=== PATIENT | male | born 1975 | race Two or more races ===

== ENCOUNTER 2024-09-22 17:33 | Inpatient (IN) | payer MEDICAID, OTHER ==
[~2024-09-22] VITALS: Ht 185.4 cm; Wt 79.4 kg
[2024-09-22 17:45] VITALS: PULSE 57; RESP 20; O2SAT 99
[2024-09-22] MEDS: HYDROmorphone HCL 2 MG/ML VL/or syr IV ONE ×2 (17:45→19:30)
[2024-09-22] MEDS: ONDANSETRON HCL 4 MG/2 ML VIAL IV ONE (17:45)
--- NOTE | 2024-09-22 17:47 | ED.PDOC ---
GI ASSESSMENT HPI Comments This is a 49 year-old male, who presents to the ED via EMS with a chief complaint of epigastric abdominal pain as of X1 month ago, but became extreme in the past 2 hours. Patient reports epigastric abdominal pain as "stabbing", non- radiating, with no associated relieving factors. Patient has no further complaints at this time. Patient denies trauma to the abdomen, as well as, further associated symptoms of N/V/D, fever, chills, migraine, dizziness, back pain, or dysuria. Chief Complaint: Abdominal Pain Time Seen by MD: 17:35 Reviewed Notes: Nurses Notes, Injection Molding Technician Notes, Medications, Allergies Allergies: Coded Allergies: NO KNOWN ALLERGIES (Unverified , 09/22/24) Information Source: Patient, Emergency Med Personnel Mode of Arrival: EMS Timing: Hours, Months Duration: Since onset Prehospital treatment: None Quality: Aching, Cramping, Sharp Vomitus: None Severity: Moderate Pain Location: Epigastric (abdominal pain ) Associated sign and symptoms: Abdominal Pain Past Medical History PAST MEDICAL HISTORY: Denies Surgical History: Denies all surgeries Family History Family History: Reviewed,noncontributory to illness, No family hx of Cancer, No family hx of DM, No family hx of Heart sivlerio, No family hx of HTN, No family hx ofKidney silverio, No family hx of Liver silverio, No family hx of Lung silverio, No family hx of Stroke Social History Smoker: Non-Smoker Alcohol: Denies ETOH Use Drugs: Denies Drug Use Lives In: Home Constitutional: denies: chills, diaphoresis, fatigue, fever, malaise, sweats, weakness, others EENTM: denies: blurred vision, double vision, ear bleeding, ear discharge, ear drainage, ear pain, ear ringing, eye pain, eye redness, hearing loss, mouth pain, mouth swelling, nasal discharge, nose bleeding, nose congestion, nose pain, photophobia, tearing, throat pain, throat swelling, voice changes, others Respiratory: denies: cough, hemoptysis, orthopnea, SOB at rest, shortness of breath, SOB with excertion, stridor, wheezing, others Cardiovascular: denies: chest pain, dizzy spells, diaphoresis, Dyspnea on exertion, edema, irregular heart beat, left arm pain, lightheadedness, palpitations, PND, syncope, others Gastrointestinal: reports: abdominal pain; denies: abdomen distended, blood streaked bowels, constipated, diarrhea, dysphagia, difficulty swallowing, hematemesis, melena, nausea, poor appetite, poor fluid intake, rectal bleeding, rectal pain, vomiting, others Genitourinary: denies: burning, dysuria, flank pain, frequency, hematuria, incontinence, penile discharge, penile sore, pain, testicle pain, testicle swelling, urgency, others Neurological: denies: dizziness, fainting, headache, left sided numbness, left sided weakness, numbness, paresthesia, pre-existing deficit, right sided numbness, right sided weakness, seizure, speech problems, tingling, tremors, weakness, others Musculoskeletal: denies: back pain, gout, joint pain, joint swelling, muscle pain, muscle stiffness, neck pain, others Integumetry: denies: bruises, change in color, change in hair/nails, dryness, laceration, lesions, lumps, rash, wounds, others Allergic/Immunocompromised: denies: Difficulty Healing, Frequent Infections, Hives, Itching, others Hematologic/Lymphatic: denies: anemia, blood clots, easy bleeding, easy bruising, swollen glands, others Endocrine: denies: excessive hunger, excessive sweating, excessive thirst, excessive urination, flushing, intolerance to cold, intolerance to heat, unexplained weight gain, unexplained weight loss, others Psychiatric: denies: anxiety, bipolar disorder, depression, hopeless, panic disorder, schizophrenia, sleepless, suicidal, others All Other Systems: Reviewed and Negative Physical Exam General Appearance: Normal, Severe Distress (Severe distress due to significant abdominal pain. Patient was in agony at arrival and difficult to ascertain full history until pain medications were on board.) HEENT: Normal ENT Inspection, Pharynx Normal, TMs Normal Neck: Full Range of Motion, Non-Tender, Normal, Normal Inspection Respiratory: Chest Non-Tender, Lungs Clear, No Accessory Muscle Use, No Respiratory Distress, Normal Breath Sounds Cardiovascular: No Edema, No JVD, No Murmur, No Gallop, Normal Peripheral Pulses, Regular Rate/Rhythm Breast Exam: Deferred Gastrointestinal: Other (Diffuse epigastric tenderness to palpation. [id number] pain appreciated on a rigid abdomen at time of evaluation. No pulsatile masses. No signs of trauma.) Genitalia: Deferred Pelvic: Deferred Rectal: Deferred Extremities: No calf tenderness, Normal capillary refill, Normal inspection, Normal range of motion, Non-tender, No pedal edema Neurologic: Alert, No Motor Deficits, Normal Affect, Normal Mood, No Sensory Deficits Cerebellar Function: Normal Reflexes: Normal Skin: Dry, Normal Color, Warm Lymphatic: No Adenopathy Was a procedure done? Was a procedure done?: No GI differential Dx Differential Diagnosis: Cholangitis, Cholecystitis, Constipation, Gastroenteritis, UTI, Bacterial, Parasitic, Viral X-Ray, Labs, Meds, VS Vital Signs Date Time Temp Pulse Resp B/P (MAP) Pulse Ox O2 Delivery O2 Flow Rate FiO2 09/22/24 23:56 98.1 80 20 122/78 (93) 97 98.1 09/22/24 20:00 42 20 132/93 09/22/24 19:31 98.1 80 18 127/91 (103) 98 98.1 09/22/24 19:31 80 20 98 Room Air* 0 21 09/22/24 19:30 49 20 127/91 09/22/24 18:00 49 20 127/91 09/22/24 18:00 49 20 127/91 (103) 99 09/22/24 17:45 57 20 99 Room Air* 0 21 09/22/24 17:45 97.2 57 20 119/83 (95) 99 97.2 09/22/24 17:45 57 20 119/83 09/22/24 17:34 50 09/22/24 17:34 98.5 100 24 139/89 100 98.5 Lab Test 09/22/24 21:56 09/22/24 19:45 09/22/24 18:28 09/22/24 17:52 Range/Units Urine Color Light-yellow Yellow Urine Clarity Clear Clear Urine pH 6.0 5.0-9.0 Urine Specific [place] > 1.050 H 1.001-1.035 Urine Protein Negative Negative Urine Ketones Negative Negative Urine Blood Negative Negative /uL Urine Nitrite Negative Negative Urine Bilirubin Negative Negative Urine Urobilinogen Normal Negative mg/dL Urine Leukocyte Esterase Negative Negative /uL Urine RBC 1 0 - 3 /hpf Urine Microscopic WBC 1 0-3 /HPF Urine Squamous Epithelial Cells None seen <5 /hpf Urine Bacteria None seen None Seen /hpf Urine Glucose Normal Normal mg/dL Urine Opiates Screen Neg NEGATIVE Urine Fentanyl Screen Neg NEGATIVE Urine Barbiturates Screen Neg NEGATIVE Urine Phencyclidine Screen Neg NEGATIVE Urine Amphetamines Screen Pos NEGATIVE Urine Benzodiazepines Screen Neg NEGATIVE Urine Cocaine Screen Neg NEGATIVE Urine Cannabinoids Screen Pos NEGATIVE Lactic Acid Level 2.0 2.5 *H 0.4-2.0 mmol/L Troponin I High Sensitivity < 3 L < 3 L </=54 ng/L White Blood Count 10.1 4.4-10.8 10^3/uL Red Blood Count 4.75 4.5-5.90 10^6/uL Hemoglobin 15.7 13.5-17.5 g/dL Hematocrit 44.8 41.0-53.0 % Mean Corpuscular Volume 94.4 80.0-100.0 fL Mean Corpuscular Hemoglobin 33.0 H 28.0-32.0 pg Mean Corpuscular Hemoglobin Concent 34.9 32.0-36.0 g/dL Red Cell Distribution Width 12.6 11.8-14.3 % Platelet Count 257 140-450 10^3/uL Mean Platelet Volume 7.7 6.9-10.8 fL Neutrophils (%) (Auto) 60.0 37.0-80.0 % Lymphocytes (%) (Auto) 28.2 10.0-50.0 % Monocytes (%) (Auto) 9.6 0.0-12.0 % Eosinophils (%) (Auto) 1.7 0.0-7.0 % Basophils (%) (Auto) 0.5 0.0-2.0 % Neutrophils # (Auto) 6.0 1.6-8.6 10 ^3/uL Lymphocytes # (Auto) 2.8 0.4-5.4 10 ^3/uL Monocytes # (Auto) 1.0 0-1.3 10 ^3/uL Eosinophils # (Auto) 0.2 0-0.8 10 ^3/uL Basophils # (Auto) 0.1 0-0.2 10 ^3/uL Nucleated Red Blood Cells 0.0 % Sodium Level 141 136-145 mmol/L Potassium Level 3.7 3.5-5.1 mmol/L Chloride Level 108 H 98-107 mmol/L Carbon Dioxide Level 24 20-31 mmol/L Anion Gap 9 5-15 Blood Urea Nitrogen 9 9-23 mg/dL Creatinine 1.06 0.700-1.30 mg/dL Glomerular Filtration Rate Calc 86 >90 mL/min BUN/Creatinine Ratio 8.5 L 10.0-20.0 Serum Glucose 100 74-106 mg/dL Calcium Level 9.0 8.7-10.4 mg/dL Total Bilirubin 0.4 0.2-1.0 mg/dL Aspartate Amino Transferase (AST) 25 13-40 U/L Alanine Aminotransferase (ALT) 46 H 7-40 U/L Alkaline Phosphatase 56 46-116 U/L Total Protein 6.7 5.7-8.2 g/dL Albumin 4.3 3.2-4.8 g/dL Lipase 53 12-53 U/L Current Medications Medications (Trade) Dose Ordered Sig/Hong Route Start Time Stop Time Status Last Admin Hydromorphone HCl (Dilaudid Injection) 1 mg ONCE ONCE IV 09/22/24 17:45 09/22/24 17:46 DC 09/22/24 17:45 Ondansetron HCl (Zofran) 4 mg ONCE ONCE IV 09/22/24 17:45 09/22/24 17:46 DC 09/22/24 17:45 Sodium Chloride 1,000 ml @ 150 mls/hr Q6H40M ONCE IV 09/22/24 18:00 09/23/24 00:39 DC 09/22/24 18:00 Hydromorphone HCl (Dilaudid Injection) 1 mg ONCE ONCE IV 09/22/24 18:30 09/22/24 18:31 DC 09/22/24 19:30 X-Ray, Labs, Meds, VS Comment All studies performed the ED were evaluated by me personally. Patient's serum laboratories were relatively unremarkable without any definitive signs of sepsis or systemic concerns. CT of the abdomen was unremarkable for any definitive cholecystitis, but some gallbladder wall thickening was noted and a ultrasound was advised. Ultrasound came back confirming the gallbladder wall thickening but stating that they could not definitively state that the patient was dealing with a cholecystitis event. They advised a nuclear HIDA scan for definitive evaluation. Patient will be admitted due to his significant abdominal pain concerns to rule out any obstructive gallbladder issues. Time of 1ST Reevaluation: 02:30 Reevaluation 1ST: Improved Consultation: PCP Patient Education/Counseling: Diagnosis, Treatment Family Education/Counseling: Diagnosis, Treatment, No Family Present SEPSIS Sepsis Screen Recent Procedure: No On Antibiotic Therapy: No Respiratory Rate >20: No Heart Rate >90: No Temp<36 C (96.8 F) or >38.3 C: No SBP <90 or MAP <65 mmHG: No New Acute Mental Status Change: No Is the patient on CPAP, BIPAP,: No Physician Orders Ct Ab Pel With Iv Con Only (09/22/24 17:41) Heplock Iv (09/22/24 17:41) Electrocardigram (09/22/24 17:41) Abdomen Limited (09/22/24 22:45) Vital Signs Date Time Temp Pulse Resp B/P (MAP) Pulse Ox O2 Delivery O2 Flow Rate FiO2 09/22/24 23:56 98.1 80 20 122/78 (93) 97 98.1 09/22/24 20:00 42 20 132/93 09/22/24 19:31 98.1 80 18 127/91 (103) 98 98.1 09/22/24 19:31 80 20 98 Room Air* 0 21 09/22/24 19:30 49 20 127/91 09/22/24 18:00 49 20 127/91 09/22/24 18:00 49 20 127/91 (103) 99 09/22/24 17:45 57 20 99 Room Air* 0 21 09/22/24 17:45 97.2 57 20 119/83 (95) 99 97.2 09/22/24 17:45 57 20 119/83 09/22/24 17:34 50 09/22/24 17:34 98.5 100 24 139/89 100 98.5 Laboratory Tests Test 09/22/24 17:52 09/22/24 19:45 Lactic Acid Level 2.5 mmol/L (0.4-2.0) *H 2.0 mmol/L (0.4-2.0) White Blood Count 10.1 10^3/uL (4.4-10.8) Medications Medications Dose Ordered Sig/Hong Route Start Time Stop Time Status Last Admin Dose Admin Hydromorphone HCl 1 mg ONCE ONCE IV 09/22/24 17:45 09/22/24 17:46 DC 09/22/24 17:45 Hydromorphone HCl 1 mg ONCE ONCE IV 09/22/24 18:30 09/22/24 18:31 DC 09/22/24 19:30 Ondansetron HCl 4 mg ONCE ONCE IV 09/22/24 17:45 09/22/24 17:46 DC 09/22/24 17:45 Sodium Chloride 1,000 ml @ 150 mls/hr Q6H40M ONCE IV 09/22/24 18:00 09/23/24 00:39 DC 09/22/24 18:00 Departure 1 Departure Time of Disposition: 02:31 Impression: Primary Impression: Intractable abdominal pain Disposition: ADMITTED INPATIENT Condition: Fair Discharged With: Self Critical Care Note Critical Care Time?: No Stability Stability form required: No Heart Score Heart Score: Heart Score Response (Comments) Value History N/A 0 EKG N/A 0 Age N/A 0 Risk Factors N/A 0 Troponin N/A 0 Total 0 I personally scribed for BALDO BENTLEY PAC ([email or web address]) on 09/22/24 at 17:47. Electronically submitted by Juliana Morrow ([facility]). I personally scribed for BALDO BENTLEY PAC ([email or web address]) on 09/22/24 at 17:50. Electronically submitted by Juliana Morrow ([facility]). BALDO BENTLEY PAC Sep 22, 2024 17:47
[2024-09-22] MEDS: SODIUM CHLORIDE 0.9% 1,000 ML IV ONE (18:00)
[2024-09-22 18:13] LABS: Hematocrit 44.8 % (41.0-53.0); Hemoglobin 15.7 g/dL (13.5-17.5); Mean Corpuscular Hemoglobin 33.0 pg (28.0-32.0); Mean Corpuscular Volume 94.4 fL (80.0-100.0); Nucleated Red Blood Cells % 0.0 %
[2024-09-22 18:22] LABS: Albumin 4.3 g/dL (3.2-4.8); Alkaline Phosphatase 56 U/L (46-116); Anion Gap 9 (5-15); BUN/Creatinine Ratio 8.5 (10.0-20.0); Bilirubin, Total 0.4 mg/dL (0.2-1.0); Calcium 9.0 mg/dL (8.7-10.4); Carbon Dioxide 24 mmol/L (20-31); Glucose 100 mg/dL (74-106); Lipase 53 U/L (12-53); Potassium 3.7 mmol/L (3.5-5.1); Sodium 141 mmol/L (136-145); Total Protein 6.7 g/dL (5.7-8.2)
[2024-09-22 18:23] LABS: Alanine Aminotransferase 46 U/L (7-40); Blood Urea Nitrogen 9 mg/dL (9-23); Chloride 108 mmol/L (98-107)
[2024-09-22 18:26] LABS: Lactic Acid w/Reflex 2.5 mmol/L (0.4-2.0)
[2024-09-22] MEDS: IOHEXOL 300 MG/ML 100ML BOTTLE IJ ONE (18:55)
[2024-09-22 19:31] VITALS: PULSE 80; RESP 20; O2SAT 98
--- NOTE | 2024-09-22 19:40 | DVH ---
COMPUTERIZED TOMOGRAPHY ABDOMEN AND PELVIS WITH CONTRAST REASON FOR EXAM: Severe upper abdominal pain COMPARISON: None TECHNIQUE: The exam was performed on a Multidetector scanner. Spiral scans were acquired from the sky phragm to the symphysis pubis after administration of IV contrast. 2-D coronal and sagittal reformatt ed images were provided. Radiation optimization: All CT scans at this facility use at least one of th adrian dose optimization techniques: Automated exposure control mA and/or kV adjustment per patient size (includes targeted exams where dose is matched to clinical indication) or iterative reconstruction. CONTRAST ADMINISTRATION: 98 mL omnipaque 350 intravenously RADIATION DOSE: CTDI: 17.13 mGy DLP: 1030.47 mGy-cm FINDINGS: There is mild dependent atelectasis in bilateral lower lobes. There is no pleural effusion. There is no pericardial effusion. The spleen is not enlarged. The liver is normal in size and contour. Evaluation of the abdomen is deg raded by streak artifact from the patient's arms. The portal vein is patent. The gallbladder is diste nded. There are several subcentimeter calcified gallstones in the gallbladder neck. There is no peric holecystic edema. The pancreas is grossly unremarkable. The adrenal glands are normal. The kidneys en azucena symmetrically. No solid renal mass is identified. There is no hydronephrosis of either kidney. The urinary bladder is unremarkable. The prostate and seminal vesicles are within normal limits. Th ere is descending and sigmoid diverticulosis without evidence of diverticulitis. The colonic stool b urden is small. The appendix is normal. No free fluid is identified in the abdomen or pelvis. There i s no pathologic lymphadenopathy. There is no pneumoperitoneum. There is no abdominal aortic aneurysm or dissection. The stomach is distended with ingested material. No acute osseous abnormality is iden tified. IMPRESSION: Cholelithiasis. Distended gallbladder although no evidence of inflammatory change. Consider right upp er quadrant ultrasound if clinically indicated. Normal appendix. No evidence of bowel obstruction. No peripancreatic inflammatory change.
[2024-09-22 22:10] LABS: Urine Protein, UAD Negative (Negative)
[2024-09-22 22:19] LABS: Opiate Scree,Urine Neg (NEGATIVE)
[2024-09-22 22:21] LABS: Amphetamine Screen, Urine Pos (NEGATIVE); Barbiturate Scree,Urine Neg (NEGATIVE); Benzodiazephine Screen, Urine Neg (NEGATIVE); Cannabinoid Screen, Urine Pos (NEGATIVE); Cocaine Screen, Urine Neg (NEGATIVE); Phencyclidine Screen, Urine Neg (NEGATIVE)
--- NOTE | 2024-09-22 23:55 | DVH ---
ULTRASOUND ABDOMEN, LIMITED RIGHT UPPER QUADRANT: REASON FOR EXAM: Right upper quadrant pain TECHNIQUE: Real-time sector scans in the transverse and longitudinal planes were obtained through th e right upper quadrant of the abdomen. FINDINGS: The liver is of normal size and contour. The liver appears mildly echogenic. There is hepa topetal flow in the portal vein. There is no intrahepatic nor extrahepatic biliary ductal dilatation. The common bile duct measures 5 mm. There are a few small stones within the gallbladder. There is sludge within the gallbladder. There is no gallbladder wall thickening nor pericholecystic fluid. Th ere is no sonographic John's sign. The pancreas is obscured by bowel gas. The right kidney measures 9.8 cm. No hydronephrosis or nephrolithiasis is identified. There is no e vidence of right renal mass or cyst. The visualized portions of the abdominal aorta demonstrate no evidence of aneurysmal dilatation. The visualized inferior vena cava is unremarkable. There is no free fluid identified in the right upper quadrant. IMPRESSION: Few small stones and sludge within the gallbladder. No gallbladder wall thickening or pericholecystic fluid. No sonographic john's sign. If there is clinical concern for acute cholecystitis, nuclear m edicine HIDA scan may be helpful. The liver is mildly echogenic which may be secondary to steatosis or another diffuse hepatic process. Correlate clinically and with liver function tests.
[2024-09-23] MEDS: HYDROmorphone HCL 2 MG/ML VL/or syr IV ONE (04:07)
--- NOTE | 2024-09-23 04:27 | DVHHP2 ---
History of Present Illness Reason for Visit: Intractable abdominal pain History of Present Illness The patient is a 49-year-old male who denies past medical history presented to [facility] ED with complaint of abdominal pain. Patient reports symptoms progressively get worse with epigastric abdominal pain, described as stabbing, nonradiating, rating 9/10 numeric scale, getting worse that prompted this visit. Patient was seen and evaluated in the ED, laboratory data shows WBC 10.1, platelets 257, sodium 141, potassium 3.7, BUN 9, creatinine 1.05, glucose 100, calcium 9.0, lipase 53, lactic acid 2.5 trending down to 2.0, troponin < 3, AST 25, ALT 46, urine toxicology positive for marijuana and amphetamine, blood pressure 124/78, heart rate 80, temperature 98.2 F, O2 saturation 97% on room air. Single organ ultrasound revealing few small stones and sludge within the gallbladder; no gallbladder wall thickening pericholecystic fluid, no sonograph ic John's sign. Patient was given Dilaudid 1 mg IV x1, IV Zofran, please see medication orders section in the computer. On my assessment, patient denied chest pain, no headache, no dizziness, no shortness of breaths, no diarrhea, no nausea, no vomiting, no fever, no chills. Patient was admitted for further evaluation and medical management. Past Medical History Denies past medical history Past Surgical History Denies all surgeries Family History Reviewed, noncontributory to the management of this case. Past Social History The patient lives at home, denies smoking, uses marijuana and methamphetamine.. Review of Systems Constitutional: No: Fever, Chills, Sweats, Weakness, Malaise, Other Eyes: No: Pain, Vision change, Conjunctivae inflammation, Eyelid inflammation, Other, Redness ENT: No: Ear pain, Ear discharge, Nose pain, Nose discharge, Nose congestion, Mouth pain, Mouth swelling, Throat pain, Throat swelling, Other Respiratory: No: Cough, Dry, Shortness of breath, SOB with excertion, Wheezing, Hemoptysis, Pleuritic Pain, Sputum, Wheezing, Other Cardiovascular: No: Chest Pain, Palpitations, Orthopnea, Paroxysmal Noc. Dyspnea, Edema, Lt Headedness, Other Gastrointestinal: Abdominal Pain; No: Nausea, Vomiting, Diarrhea, Constipation, Melena, Hematochezia, Other Genitourinary: No Dysuria, No Frequency, No Incontinence, No Hematuria, No Retention, No Other Musculoskeletal: No: other, neck pain, shoulder pain, arm pain, back pain, hand pain, leg pain, foot pain Skin: No: Rash, Lesions, Jaundice, Bruising, Other Neurological: No: Weakness, Numbness, Incoordination, Change in speech, Confusion, Seizures, Other Allergies: Coded Allergies: NO KNOWN ALLERGIES (Unverified , 09/22/24) Exam Vital Signs Vital Signs Date Time Temp Pulse Resp B/P (MAP) Pulse Ox O2 Delivery O2 Flow Rate FiO2 09/23/24 04:07 100 20 124/78 09/23/24 02:43 98.2 95 98.2 09/22/24 19:31 Room Air* 0 21 General Appearance: Alert, Oriented X3, Cooperative, No acute distress HEENT: Atraumatic, PERRLA, EOMI, Mucous membr. moist/pink Respiratory: Clear to auscultation, Normal air movement Cardiovascular: Regular rate, Normal S1, Normal S2, No murmurs Abdominal: Normal bowel sounds, Soft, No hepatospenomegaly, No masses, Other (Reports tenderness) Extremities: No clubbing, No cyanosis, No edema, Normal pulses, No tenderness/swelling Skin: No rashes, No breakdown, No significant lesion Neuro: Normal gait, Normal speech, Strength at 5/5 X4 ext, Normal tone, Sensation intact, Cranial nerves 3-12 NL, Reflexes 2+ Psych/Mental Status: Mental status NL, Mood NL Labs/Xrays Labs Test 09/22/24 21:56 09/22/24 19:45 09/22/24 18:28 09/22/24 17:52 Range/Units Urine Color Light-yellow Yellow Urine Clarity Clear Clear Urine pH 6.0 5.0-9.0 Urine Specific [place] > 1.050 H 1.001-1.035 Urine Protein Negative Negative Urine Ketones Negative Negative Urine Blood Negative Negative /uL Urine Nitrite Negative Negative Urine Bilirubin Negative Negative Urine Urobilinogen Normal Negative mg/dL Urine Leukocyte Esterase Negative Negative /uL Urine RBC 1 0 - 3 /hpf Urine Microscopic WBC 1 0-3 /HPF Urine Squamous Epithelial Cells None seen <5 /hpf Urine Bacteria None seen None Seen /hpf Urine Glucose Normal Normal mg/dL Urine Opiates Screen Neg NEGATIVE Urine Fentanyl Screen Neg NEGATIVE Urine Barbiturates Screen Neg NEGATIVE Urine Phencyclidine Screen Neg NEGATIVE Urine Amphetamines Screen Pos NEGATIVE Urine Benzodiazepines Screen Neg NEGATIVE Urine Cocaine Screen Neg NEGATIVE Urine Cannabinoids Screen Pos NEGATIVE Lactic Acid Level 2.0 0.4-2.0 mmol/L Troponin I High Sensitivity < 3 L </=54 ng/L White Blood Count 10.1 4.4-10.8 10^3/uL Red Blood Count 4.75 4.5-5.90 10^6/uL Hemoglobin 15.7 13.5-17.5 g/dL Hematocrit 44.8 41.0-53.0 % Mean Corpuscular Volume 94.4 80.0-100.0 fL Mean Corpuscular Hemoglobin 33.0 H 28.0-32.0 pg Mean Corpuscular Hemoglobin Concent 34.9 32.0-36.0 g/dL Red Cell Distribution Width 12.6 11.8-14.3 % Platelet Count 257 140-450 10^3/uL Mean Platelet Volume 7.7 6.9-10.8 fL Neutrophils (%) (Auto) 60.0 37.0-80.0 % Lymphocytes (%) (Auto) 28.2 10.0-50.0 % Monocytes (%) (Auto) 9.6 0.0-12.0 % Eosinophils (%) (Auto) 1.7 0.0-7.0 % Basophils (%) (Auto) 0.5 0.0-2.0 % Neutrophils # (Auto) 6.0 1.6-8.6 10 ^3/uL Lymphocytes # (Auto) 2.8 0.4-5.4 10 ^3/uL Monocytes # (Auto) 1.0 0-1.3 10 ^3/uL Eosinophils # (Auto) 0.2 0-0.8 10 ^3/uL Basophils # (Auto) 0.1 0-0.2 10 ^3/uL Nucleated Red Blood Cells 0.0 % Sodium Level 141 136-145 mmol/L Potassium Level 3.7 3.5-5.1 mmol/L Chloride Level 108 H 98-107 mmol/L Carbon Dioxide Level 24 20-31 mmol/L Anion Gap 9 5-15 Blood Urea Nitrogen 9 9-23 mg/dL Creatinine 1.06 0.700-1.30 mg/dL Glomerular Filtration Rate Calc 86 >90 mL/min BUN/Creatinine Ratio 8.5 L 10.0-20.0 Serum Glucose 100 74-106 mg/dL Calcium Level 9.0 8.7-10.4 mg/dL Total Bilirubin 0.4 0.2-1.0 mg/dL Aspartate Amino Transferase (AST) 25 13-40 U/L Alanine Aminotransferase (ALT) 46 H 7-40 U/L Alkaline Phosphatase 56 46-116 U/L Total Protein 6.7 5.7-8.2 g/dL Albumin 4.3 3.2-4.8 g/dL Lipase 53 12-53 U/L PATIENT: OCTAVIA BROWN ACCT: [id number] UNIT: [id number] : 1975 LOC: ER ROOM / BED: / AGE / SEX: 49 / M ADM STATUS: REG ER SERVICE 1741 ORDERING PHYSICIAN: BALDO BENTLEY PAC PROCEDURE(s): ABPLIV - CT AB PEL WITH IV CON ONLY REASON: Severe upper abdominal pain ORDER NUMBER(s): [id number], ACCESSION NUMBER(s): [id number] COMPUTERIZED TOMOGRAPHY ABDOMEN AND PELVIS WITH CONTRAST REASON FOR EXAM: Severe upper abdominal pain COMPARISON: None TECHNIQUE: The exam was performed on a Multidetector scanner. Spiral scans were acquired from the diaphragm to the symphysis pubis after administration of IV contrast. 2-D coronal and sagittal reformatted images were provided. Radiation optimization: All CT scans at this facility use at least one of these dose optimization techniques: Automated exposure control mA and/or kV adjustment per patient size (includes targeted exams where dose is matched to clinical indication) or iterative reconstruction. CONTRAST ADMINISTRATION: 98 mL omnipaque 350 intravenously RADIATION DOSE: CTDI: 17.13 mGy DLP: 1030.47 mGy-cm FINDINGS: There is mild dependent atelectasis in bilateral lower lobes. There is no pleural effusion. There is no pericardial effusion. The spleen is not enlarged. The liver is normal in size and contour. Evaluation of the abdomen is degraded by streak artifact from the patient's arms. The portal vein is patent. The gallbladder is distended. There are several subcentimeter calcified gallstones in the gallbladder neck. There is no pericholecystic edema. The pancreas is grossly unremarkable. The adrenal glands are normal. The kidneys enhance symmetrically. No solid renal mass is identified. There is no hydronephrosis of either kidney. The urinary bladder is unremarkable. The prostate and seminal vesicles are within normal limits. There is descending and sigmoid diverticulosis without evidence of diverticulitis. The colonic stool burden is small. The appendix is normal. No free fluid is id entified in the abdomen or pelvis. There is no pathologic lymphadenopathy. There is no pneumoperitoneum. There is no abdominal aortic aneurysm or dissection. The stomach is distended with ingested material. No acute osseous abnormality is identified. IMPRESSION: Cholelithiasis. Distended gallbladder although no evidence of inflammatory change. Consider right upper quadrant ultrasound if clinically indicated. Normal appendix. No evidence of bowel obstruction. No peripancreatic inflammatory change. ORDERING PHYSICIAN: BALDO BENTLEY PAC PROCEDURE(s): ABDL - ABDOMEN LIMITED REASON: Right upper quadrant ORDER NUMBER(s): [id number], ACCESSION NUMBER(s): [id number] ULTRASOUND ABDOMEN, LIMITED RIGHT UPPER QUADRANT: REASON FOR EXAM: Right upper quadrant pain TECHNIQUE: Real-time sector scans in the transverse and longitudinal planes were obtained through the right upper quadrant of the abdomen. FINDINGS: The liver is of normal size and contour. The liver appears mildly echogenic. There is hepatopetal flow in the portal vein. There is no intrahepatic nor extrahepatic biliary ductal dilatation. The common bile duct measures 5 mm. There are a few small stones within the gallbladder. There is sludge within the gallbladder. There is no gallbladder wall thickening nor pericholecystic fluid. There is no sonographic John's sign. The pancreas is obscured by bowel gas. The right kidney measures 9.8 cm. No hydronephrosis or nephrolithiasis is identified. There is no evidence of right renal mass or cyst. The visualized portions of the abdominal aorta demonstrate no evidence of aneurysmal dilatation. The visualized inferior vena cava is unremarkable. There is no free fluid identified in the right upper quadrant. IMPRESSION: Few small stones and sludge within the gallbladder. No gallbladder wall thickening or pericholecystic fluid. No sonographic john's sign. If there is clinical concern for acute cholecystitis, nuclear medicine HIDA scan may be helpful. The liver is mildly echogenic which may be secondary to steatosis or another diffuse hepatic process. Correlate clinically and with liver function tests. SEPSIS Sepsis Screen Date sepsis recognized/suspect: Sep 22, 2024 Time Sepsis recognized/suspect: 1935 Recent Procedure: No On Antibiotic Therapy: No Respiratory Rate >20: No Heart Rate >90: No Temp<36 C (96.8 F) or >38.3 C: No SBP <90 or MAP <65 mmHG: No New Acute Mental Status Change: No Is the patient on CPAP, BIPAP,: No Physician Orders Abdomen Limited (09/22/24 22:45) Complete Blood Count (09/23/24 04:22) Comprehensive Metabolic Panel (09/23/24 04:22) Pantoprazole (Protonix) (09/23/24 04:30) Pantoprazole (Protonix) (09/23/24 10:00) Hydromorphone Injection (Dilaudid Inject (09/23/24 04:30) Admit (09/23/24 04:22) Allergies (09/23/24 04:22) Code Status (09/23/24 04:22) 0.9% Ns 1000 Ml (09/23/24 04:30) Oxygen Per Hour (09/23/24 04:22) Hydrocodone-Acet 5/325mg Tab ([place] 5/32 (09/23/24 04:30) Ondansetron Hcl (Zofran) (09/23/24 04:30) Docusate Sodium Capsule (Colace Capsule) (09/23/24 04:30) Complete Blood Count (09/24/24 04:00) Comprehensive Metabolic Panel (09/24/24 04:00) Condition: Serious (09/23/24 04:22) Acetaminophen Tablet (Tylenol Tablet) (09/23/24 04:30) Clear Liq Diet (09/23/24 Breakfast) Bedrest With Bathroom Privileg (09/23/24 04:22) Sequential Compression Device (09/23/24 ) Nitroglycerin Sublingual (Ntrostat Subli (09/23/24 04:30) Morphine Sulfate Injection (09/23/24 04:30) Notify Md Of Changes From Base (09/23/24 04:22) Emergency Dysrhythmia Protocol (09/23/24 04:22) Oxygen By Nasal Cannula (09/23/24 04:22) Vital Signs Date Time Temp Pulse Resp B/P (MAP) Pulse Ox O2 Delivery O2 Flow Rate FiO2 09/23/24 04:07 100 20 124/78 09/23/24 02:43 98.2 50 20 124/65 (84) 95 98.2 09/22/24 23:56 98.1 80 20 122/78 (93) 97 98.1 Laboratory Tests Test 09/22/24 17:52 09/22/24 19:45 Lactic Acid Level 2.5 mmol/L (0.4-2.0) *H 2.0 mmol/L (0.4-2.0) White Blood Count 10.1 10^3/uL (4.4-10.8) Medications Medications Dose Ordered Sig/Hong Route Start Time Stop Time Status Last Admin Dose Admin Hydromorphone HCl 1 mg ONCE ONCE IV 09/22/24 17:45 09/22/24 17:46 DC 09/22/24 17:45 1 MG Hydromorphone HCl 1 mg ONCE ONCE IV 09/22/24 18:30 09/22/24 18:31 DC 09/22/24 19:30 1 MG Hydromorphone HCl 1 mg ONCE ONCE IV 09/23/24 04:00 09/23/24 04:01 DC 09/23/24 04:07 1 MG Ondansetron HCl 4 mg ONCE ONCE IV 09/22/24 17:45 09/22/24 17:46 DC 09/22/24 17:45 4 MG Sodium Chloride 1,000 ml @ 150 mls/hr Q6H40M ONCE IV 09/22/24 18:00 09/23/24 00:39 DC 09/22/24 18:00 150 MLS/HR Assessment/Plan Assessment/Plan Intractable abdominal pain Polysubstance abuse Plan 1. Admit to med surge unit 2. Breathing treatment 3. Pain control management 4. Management of fluids and electrolytes 5. Consultation for hospitalist 6. Diagnostic tests single organ ultrasound 7. DVT prophylaxis on SCDs 8. Repeat labs CBC, CMP in a.m. 9. Continue with current medical management 10. Treatment plan discussed with patient and RN. Patient verbalized understanding. Plan discussed with: Patient, Other (RN) My Orders Orders - ZHANE IRELAND DNP Procedure Category Date Status Time Complete Blood Count LAB 09/23/24 Verified 04:22 Comprehensive LAB 09/23/24 Verified Metabolic Panel 04:22 Pantoprazole PHA 09/23/24 Verified (Protonix) 04:30 Pantoprazole PHA 09/23/24 Verified (Protonix) 10:00 Hydromorphone PHA 09/23/24 Verified Injection (Dilaudid 04:30 Admit ADMIT 09/23/24 Verified 04:22 Allergies RUSS 09/23/24 Verified 04:22 Code Status CODE 09/23/24 Verified 04:22 0.9% Ns 1000 Ml PHA 09/23/24 Verified 04:30 Oxygen Per Hour RT 09/23/24 Verified 04:22 Hydrocodone-Acet PHA 09/23/24 Verified 5/325mg Tab ([place] 04:30 Ondansetron Hcl PHA 09/23/24 Verified (Zofran) 04:30 Docusate Sodium PHA 09/23/24 Verified Capsule (Colace 04:30 Complete Blood Count LAB 09/24/24 Verified 04:00 Comprehensive LAB 09/24/24 Verified Metabolic Panel 04:00 Condition: Serious RUSS 09/23/24 Verified 04:22 Acetaminophen Tablet PHA 09/23/24 Verified (Tylenol Tablet) 04:30 Clear Liq Diet DIET 09/23/24 Verified Breakfast Bedrest With Bathroom RUSS 09/23/24 Verified Privileg 04:22 Sequential RUSS 09/23/24 Verified Compression Device Nitroglycerin PHA 09/23/24 Verified Sublingual (Ntrostat 04:30 Morphine Sulfate PHA 09/23/24 Verified Injection 04:30 Notify Md Of Changes [facility] 09/23/24 Verified From Base 04:22 Emergency Dysrhythmia [facility] 09/23/24 Verified Protocol 04:22 Oxygen By Nasal RT 09/23/24 Verified Cannula 04:22 Problem List: (1) Intractable abdominal pain (2) Polysubstance abuse Date of Service: Sep 23, 2024 Billing Provider: ZHANE IRELAND DNP Common Visit Codes: [id number] INP/OBS CARE (HIGH) ZHANE IRELAND DNP Sep 23, 2024 04:27
[2024-09-23] MEDS ORDERED: ONDANSETRON HCL 4 MG/2 ML VIAL IV PRN (04:30)
[2024-09-23] MEDS ORDERED: MORPHINE SULFATE INJ 2 MG/ml SYRG IV PRN (04:30)
[2024-09-23] MEDS ORDERED: NITROGLYCERIN 0.4 MG SL TAB SL PRN (04:30)
[2024-09-23] MEDS ORDERED: HYDROmorphone HCL 2 MG/ML VL/or syr IV PRN (04:30)
[2024-09-23] MEDS ORDERED: DOCUSATE SOD 100 MG CAP PO PRN (04:30)
[2024-09-23] MEDS ORDERED: ACETAMINOPHEN 325 MG TAB PO PRN (04:30)
[2024-09-23] MEDS: SODIUM CHLORIDE 0.9% 1,000 ML IV SCH (05:43)
[2024-09-23] MEDS: PANTOPRAZOLE 40 MG/10 ML VIAL INJ IV ONE (05:46)
[2024-09-23 07:43] LABS: Hematocrit 48.5 % (41.0-53.0); Hemoglobin 17.2 g/dL (13.5-17.5); Mean Corpuscular Hemoglobin 32.8 pg (28.0-32.0); Mean Corpuscular Volume 92.7 fL (80.0-100.0); Nucleated Red Blood Cells % 0.1 %
[2024-09-23 07:59] LABS: Albumin 4.3 g/dL (3.2-4.8); Alkaline Phosphatase 58 U/L (46-116); Anion Gap 7 (5-15); Calcium 8.7 mg/dL (8.7-10.4); Carbon Dioxide 26 mmol/L (20-31); Chloride 105 mmol/L (98-107); Glucose 98 mg/dL (74-106); Potassium 3.8 mmol/L (3.5-5.1); Sodium 138 mmol/L (136-145); Total Protein 6.9 g/dL (5.7-8.2)
[2024-09-23 08:00] LABS: Bilirubin, Total 0.8 mg/dL (0.2-1.0)
[2024-09-23 08:01] LABS: Alanine Aminotransferase 57 U/L (7-40); BUN/Creatinine Ratio 5.7 (10.0-20.0); Blood Urea Nitrogen < 5 mg/dL (9-23)
[2024-09-23 09:23] VITALS: BP 111/77; PULSE 65; RESP 17; TEMP 97.6; O2SAT 96
[2024-09-23] MEDS: PANTOPRAZOLE 40 MG/10 ML VIAL INJ IV SCH (10:12)
[2024-09-23] MEDS: HYDROcodone-ACET 5/325MG TAB PO PRN (10:12)
[2024-09-23 15:00] VITALS: BP 107/66; PULSE 55; RESP 18; TEMP 98.2; O2SAT 96
[2024-09-23 17:00] VITALS: BP 136/55; PULSE 56; RESP 18; TEMP 98.2; O2SAT 98
[2024-09-23 20:00] VITALS: PULSE 74; RESP 18; O2SAT 97
--- NOTE | 2024-09-23 20:20 | DVHPN2 ---
Progress Note - Dictate Date Seen: Sep 23, 2024 Medical Necessity Reason Pt with a Central, PICC or Fol: No Subjective Cross covering for [facility] group today. Patient admitted this morning. His chart is reviewed. At present denies any acute abdominal pain. vital signs Vital Sign Date Time Temp Pulse Resp B/P (MAP) Pulse Ox O2 Delivery O2 Flow Rate FiO2 09/23/24 17:00 98.2 56 18 136/55 (82) 98 98.2 09/23/24 14:00 Room Air* 0 21 medications Current Medications Medications Dose Ordered Sig/Hong Route Start Time Stop Time Status Last Admin Dose Admin Pantoprazole Sodium 40 mg DAILY IV 09/23/24 10:00 09/23/24 10:12 40 MG Hydromorphone HCl 0.5 mg Q4HPRN PRN IV 09/23/24 04:30 Sodium Chloride 1,000 ml @ 60 mls/hr [id number] IV 09/23/24 04:30 09/23/24 05:43 60 MLS/HR Acetaminophen/ Hydrocodone Bitart 1 tab Q4HP PRN PO 09/23/24 04:30 09/23/24 10:12 1 TAB Ondansetron HCl 4 mg Q4HP PRN IV 09/23/24 04:30 Docusate Sodium 100 mg BIDPRN PRN PO 09/23/24 04:30 Acetaminophen 650 mg Q6HP PRN PO 09/23/24 04:30 Nitroglycerin 0.4 mg Q5MINP PRN SL 09/23/24 04:30 Morphine Sulfate 2 mg Q30M PRN IV 09/23/24 04:30 objective Alert awake oriented to place and person. Comfortable in bed without any acute distress. HEENT neck supple no JVD pupils equal round reactive to light. Heart regular rate and rhythm S1 and S2 without murmurs. Lungs fair air movement chest equal to expansion without rales or wheezes. Abdomen soft and minimal tenderness in the epigastric region without any rebound or guarding. No organomegaly. Positive active bowel sounds. Extremities no edema positive distal pedal pulses. laboratory and microbiology Laboratory Tests 09/23/24 07:18 Test 09/23/24 07:18 Range/Units Serum Glucose 98 74-106 mg/dL Assessment/Plan His imaging studies did not reveal any obvious evidence of acute gas enteritis or gallbladder problem. Patient possibly have GERD/gastritis and based on his presentation. We will have a GI consultation. Advance diet as tolerated. Protonix. Patient counseled regarding his illicit drug use and advised to seek help with rehab programs. Meantime given his LFTs are slightly elevated we will also order HIDA scan to evaluate for any gallbladder cystic duct problems. Otherwise continue rest of supportive care and treatment. Follow clinical management per clinical course. Discussed with the patient at bedside regarding care plan. Problems(with codes): (1) Intractable abdominal pain (2) Polysubstance abuse Plan discussed with: Patient ROBERTO SAUCEDO MD Sep 23, 2024 20:20
[2024-09-23 21:00] VITALS: BP 111/80; PULSE 74; RESP 18; TEMP 97.8; O2SAT 96
[2024-09-24 01:00] VITALS: BP 116/80; PULSE 68; RESP 18; TEMP 98.7; O2SAT 97
[2024-09-24 05:00] VITALS: BP 105/85; PULSE 74; RESP 18; TEMP 97.9; O2SAT 98
[2024-09-24 07:40] LABS: Hematocrit 47.2 % (41.0-53.0); Hemoglobin 16.9 g/dL (13.5-17.5); Mean Corpuscular Hemoglobin 33.2 pg (28.0-32.0); Mean Corpuscular Volume 92.7 fL (80.0-100.0); Nucleated Red Blood Cells % 0.0 %
[2024-09-24 08:01] LABS: Albumin 4.2 g/dL (3.2-4.8); Alkaline Phosphatase 55 U/L (46-116); Anion Gap 8 (5-15); BUN/Creatinine Ratio 4.6 (10.0-20.0); Calcium 8.8 mg/dL (8.7-10.4); Carbon Dioxide 29 mmol/L (20-31); Chloride 103 mmol/L (98-107); Glucose 82 mg/dL (74-106); Potassium 4.1 mmol/L (3.5-5.1); Sodium 140 mmol/L (136-145); Total Protein 6.7 g/dL (5.7-8.2)
[2024-09-24 08:02] LABS: Alanine Aminotransferase 43 U/L (7-40); Bilirubin, Total 0.7 mg/dL (0.2-1.0); Blood Urea Nitrogen 5 mg/dL (9-23)
--- NOTE | 2024-09-24 08:08 | ECG ---
[facility] Test Date: 2024-09-22 Test Time: 17:34:44 Pat Name: OCTAVIA BROWN Department: ED Room: 0292 A Gender: M Concrete Foreman: katy : 1975 Requested By: BALDO BENTLEY Order Number: [id number] Reading MD: Steve Simon Measurements Intervals [place] Rate: 50 P: 70 NV: 145 QRS: 87 QRSD: 108 T: 76 QT: 435 QTc: 397 Interpretive Statements Sinus rhythm Minimal ST depression, diffuse leads Electronically Signed On 09-24-2024 22:05:22 PDT by Steve Simon Please click the below link to view image of tracing.
[2024-09-24 09:00] VITALS: BP 109/75; PULSE 68; RESP 18; TEMP 97.3; O2SAT 98
[2024-09-24 11:18] LABS: Hepatitis B Surface Antigen Negative (Negative)
[2024-09-24 11:20] LABS: Hepatitis C Antibody Positive (Negative)
--- NOTE | 2024-09-24 12:17 | DVHINCON2 ---
GI Consult Consult Note GI consult note Date of Consultation: 09/24/2024 Chief Complaint: Abdominal pain Referring Physician: H&P: 49-year-old male admitted with complains of abdominal pain, mostly in the epigastric area described as stabbing nonradiating for the last few days. Patient denies nausea vomiting. No history of GERD. No history of EGD or colonoscopy in past. Patient urine toxicology positive for marijuana and amphetamines Past Medical History: Denies Past Surgical History: Denies Social History: Positive for marijuana and amphetamines Family History: Noncontributory Review of Systems: Constitutional: no fever, chill, weight loss HEENT: no eye pain, no hearing loss, no oral lesion, no scleral icterus Heart: no chest pain, no chest pressure Lung: no cough, no dyspnea with exertion Abdomen: see HPI Physical exam: General: NAD, AAOX3 Chest: lung lemons clear to auscultation Heart: RRR, no murmur Abdomen: non-distended, mild epigastric tenderness to palpation, +BS Labs: Labs Test 09/24/24 07:04 09/23/24 07:18 09/22/24 21:56 09/22/24 19:45 Range/Units White Blood Count 9.0 4.4-10.8 10^3/uL Red Blood Count 5.10 4.5-5.90 10^6/uL Hemoglobin 16.9 13.5-17.5 g/dL Hematocrit 47.2 41.0-53.0 % Mean Corpuscular Volume 92.7 80.0-100.0 fL Mean Corpuscular Hemoglobin 33.2 H 28.0-32.0 pg Mean Corpuscular Hemoglobin Concent 35.8 32.0-36.0 g/dL Red Cell Distribution Width 12.7 11.8-14.3 % Platelet Count 227 140-450 10^3/uL Mean Platelet Volume 8.1 6.9-10.8 fL Neutrophils (%) (Auto) 55.2 37.0-80.0 % Lymphocytes (%) (Auto) 30.0 10.0-50.0 % Monocytes (%) (Auto) 12.7 H 0.0-12.0 % Eosinophils (%) (Auto) 1.7 0.0-7.0 % Basophils (%) (Auto) 0.4 0.0-2.0 % Neutrophils # (Auto) 4.9 1.6-8.6 10 ^3/uL Lymphocytes # (Auto) 2.7 0.4-5.4 10 ^3/uL Monocytes # (Auto) 1.1 0-1.3 10 ^3/uL Eosinophils # (Auto) 0.2 0-0.8 10 ^3/uL Basophils # (Auto) 0 0-0.2 10 ^3/uL Nucleated Red Blood Cells 0.0 % Sodium Level 140 136-145 mmol/L Potassium Level 4.1 3.5-5.1 mmol/L Chloride Level 103 98-107 mmol/L Carbon Dioxide Level 29 20-31 mmol/L Anion Gap 8 5-15 Blood Urea Nitrogen 5 L 9-23 mg/dL Creatinine 1.09 0.700-1.30 mg/dL Glomerular Filtration Rate Calc 83 >90 mL/min BUN/Creatinine Ratio 4.6 L 10.0-20.0 Serum Glucose 82 74-106 mg/dL Calcium Level 8.8 8.7-10.4 mg/dL Total Bilirubin 0.7 0.2-1.0 mg/dL Aspartate Amino Transferase (AST) 28 13-40 U/L Alanine Aminotransferase (ALT) 43 H 7-40 U/L Alkaline Phosphatase 55 46-116 U/L Total Protein 6.7 5.7-8.2 g/dL Albumin 4.2 3.2-4.8 g/dL Hepatitis B Surface Antigen Negative Negative Hepatitis C Antibody Positive *A Negative Urine Color Light-yellow Yellow Urine Clarity Clear Clear Urine pH 6.0 5.0-9.0 Urine Specific [place] > 1.050 H 1.001-1.035 Urine Protein Negative Negative Urine Ketones Negative Negative Urine Blood Negative Negative /uL Urine Nitrite Negative Negative Urine Bilirubin Negative Negative Urine Urobilinogen Normal Negative mg/dL Urine Leukocyte Esterase Negative Negative /uL Urine RBC 1 0 - 3 /hpf Urine Microscopic WBC 1 0-3 /HPF Urine Squamous Epithelial Cells None seen <5 /hpf Urine Bacteria None seen None Seen /hpf Urine Glucose Normal Normal mg/dL Urine Opiates Screen Neg NEGATIVE Urine Fentanyl Screen Neg NEGATIVE Urine Barbiturates Screen Neg NEGATIVE Urine Phencyclidine Screen Neg NEGATIVE Urine Amphetamines Screen Pos NEGATIVE Urine Benzodiazepines Screen Neg NEGATIVE Urine Cocaine Screen Neg NEGATIVE Urine Cannabinoids Screen Pos NEGATIVE Lactic Acid Level 2.0 0.4-2.0 mmol/L Test 09/22/24 18:28 09/22/24 17:52 Range/Units Troponin I High Sensitivity < 3 L </=54 ng/L Lipase 53 12-53 U/L Imaging: CT abdomen pelvis IMPRESSION: Cholelithiasis. Distended gallbladder although no evidence of inflammatory change. Consider right upper quadrant ultrasound if clinically indicated. Normal appendix. No evidence of bowel obstruction. No peripancreatic inflammatory change. Abdominal ultrasound IMPRESSION: Few small stones and sludge within the gallbladder. No gallbladder wall thickening or pericholecystic fluid. No sonographic lemus's sign. If there is clinical concern for acute cholecystitis, nuclear medicine HIDA scan may be helpful. The liver is mildly echogenic which may be secondary to steatosis or another diffuse hepatic process. Correlate clinically and with liver function tests. Assessment: Abdominal pain Cholelithiasis Polysubstance abuse Plan: Discussed with Dr. Juan David HUBER is pending Surgical consult pending Monitor labs Protonix and Zofran We will continue to monitor patient Plan discussed with patient and RN Thank you for this consult Date of Service: Sep 24, 2024 Billing Provider: BEVERLY MAJANO Common Visit Codes: CONSULT ONLY Consultation Codes: [id number] CONSULT <45MIN BEVERLY MAJANO Sep 24, 2024 12:17
[2024-09-24 13:00] VITALS: BP 102/70; PULSE 67; RESP 16; TEMP 97.3; O2SAT 98
--- NOTE | 2024-09-24 14:15 | DVHPN2 ---
Subjective Clinically stable. Still has some epigastric/right upper quadrant discomfort. Tolerating liquid diet. Pending HIDA scan. Changes from previous H/P or p: No Changes Objective Vitals Vital Signs Date Time Temp Pulse Resp B/P (MAP) Pulse Ox O2 Delivery O2 Flow Rate FiO2 09/24/24 09:00 97.3 68 18 109/75 (86) 98 97.3 09/24/24 08:00 Room Air* 0 21 Intake/Output Intake and Output 09/24/24 07:00 Intake Total 870 ml Balance 870 ml Intake Oral 870 ml # Voids 1 Exam Alert awake oriented to place and person comfortable in bed without acute distress. HEENT neck supple no JVD. Heart regular rate and rhythm S1-S2. Lungs fair air movement without rales wheezes. Abdomen soft nontender positive bowel sounds. Extremities no edema positive pulses. Medications Current Medications Medications Dose Ordered Sig/Hong Route Start Time Stop Time Status Last Admin Dose Admin Pantoprazole Sodium 40 mg DAILY IV 09/23/24 10:00 09/23/24 10:12 40 MG Hydromorphone HCl 0.5 mg Q4HPRN PRN IV 09/23/24 04:30 Sodium Chloride 1,000 ml @ 60 mls/hr [id number] IV 09/23/24 04:30 09/23/24 21:10 60 MLS/HR Acetaminophen/ Hydrocodone Bitart 1 tab Q4HP PRN PO 09/23/24 04:30 09/23/24 10:12 1 TAB Ondansetron HCl 4 mg Q4HP PRN IV 09/23/24 04:30 Docusate Sodium 100 mg BIDPRN PRN PO 09/23/24 04:30 Acetaminophen 650 mg Q6HP PRN PO 09/23/24 04:30 Nitroglycerin 0.4 mg Q5MINP PRN SL 09/23/24 04:30 Morphine Sulfate 2 mg Q30M PRN IV 09/23/24 04:30 Laboratory Results Laboratory Tests 09/24/24 07:04 Chemistry Test 09/24/24 07:04 Albumin 4.2 g/dL (3.2-4.8) Calcium Level 8.8 mg/dL (8.7-10.4) Total Protein 6.7 g/dL (5.7-8.2) LFT Test 09/24/24 07:04 Alanine Aminotransferase (ALT) 43 U/L (7-40) H Alkaline Phosphatase 55 U/L (46-116) Aspartate Amino Transferase (AST) 28 U/L (13-40) Total Bilirubin 0.7 mg/dL (0.2-1.0) Urinalysis Test 09/22/24 21:56 Urine Color Light-yellow (Yellow) Urine Clarity Clear (Clear) Urine pH 6.0 (5.0-9.0) Urine Specific [place] > 1.050 (1.001-1.035) Urine Protein Negative (Negative) Urine Ketones Negative (Negative) Urine Blood Negative /uL (Negative) Urine Nitrite Negative (Negative) Urine Bilirubin Negative (Negative) Urine Urobilinogen Normal mg/dL (Negative) Urine Leukocyte Esterase Negative /uL (Negative) Urine RBC 1 /hpf (0 - 3) Urine Microscopic WBC 1 /HPF (0-3) Urine Squamous Epithelial Cells None seen /hpf (<5) Urine Bacteria None seen /hpf (None Seen) Urine Glucose Normal mg/dL (Normal) Assessment/Plan Assessment/Plan Continue present supportive care and treatment as he is on. Follow the HIDA scan results. Pending surgical evaluation. Otherwise continue rest of supportive care and treatment and further clinical management per clinical course and pending evaluations and studies. Plan discussed with: Patient, Other My Orders Orders - ROBERTO SAUCEDO MD Procedure Category Date Status Time * [facility] Manager CONS 09/23/24 Transmitted 20:21 Problem List: (1) Cholecystitis, unspecified (2) Intractable abdominal pain (3) Polysubstance abuse Date of Service: Sep 24, 2024 Billing Provider: ROBERTO SAUCEDO MD Common Visit Codes: [id number] INP/OBS CARE(MOD) ROBERTO SAUCEDO MD Sep 24, 2024 14:15
--- NOTE | 2024-09-24 15:28 | DVH ---
CLINICAL INFORMATION: Abdominal pain. TECHNIQUE: 6.5 mCi of Choletec were administered intravenously. Images of the upper abdomen were ob tained at 2 minute intervals up to a total time of 60 minutes. 4 hour delayed images were also obtain ed. COMPARISON: CT dated 09/22/2024 and ultrasound dated 09/22/2024. FINDINGS: The gallbladder is not visualized on initial images obtained up to 60 minutes or on the 4 hour delayed images. There is prompt excretion of activity from the biliary ductal system into the sm all bowel. IMPRESSION: Gallbladder not visualized, suspicious for acute cholecystitis in the appropriate clinical setting. C orrelate with clinical findings.
[2024-09-24 16:54] VITALS: BP 119/74; PULSE 63; RESP 16; TEMP 98; O2SAT 98
--- NOTE | 2024-09-24 18:27 | DVHINCON2 ---
Date of service: Sep 24, 2024 Allergies: Coded Allergies: NO KNOWN ALLERGIES (Unverified , 09/22/24) Vital Signs Vital Signs Date Time Temp Pulse Resp B/P (MAP) Pulse Ox O2 Delivery O2 Flow Rate FiO2 09/24/24 16:54 98.0 63 16 119/74 (89) 98 98.0 09/24/24 08:00 Room Air* 0 21 Labs/Diagnostic Data Labs Test 09/24/24 07:04 09/23/24 07:18 09/22/24 21:56 09/22/24 19:45 Range/Units White Blood Count 9.0 4.4-10.8 10^3/uL Red Blood Count 5.10 4.5-5.90 10^6/uL Hemoglobin 16.9 13.5-17.5 g/dL Hematocrit 47.2 41.0-53.0 % Mean Corpuscular Volume 92.7 80.0-100.0 fL Mean Corpuscular Hemoglobin 33.2 H 28.0-32.0 pg Mean Corpuscular Hemoglobin Concent 35.8 32.0-36.0 g/dL Red Cell Distribution Width 12.7 11.8-14.3 % Platelet Count 227 140-450 10^3/uL Mean Platelet Volume 8.1 6.9-10.8 fL Neutrophils (%) (Auto) 55.2 37.0-80.0 % Lymphocytes (%) (Auto) 30.0 10.0-50.0 % Monocytes (%) (Auto) 12.7 H 0.0-12.0 % Eosinophils (%) (Auto) 1.7 0.0-7.0 % Basophils (%) (Auto) 0.4 0.0-2.0 % Neutrophils # (Auto) 4.9 1.6-8.6 10 ^3/uL Lymphocytes # (Auto) 2.7 0.4-5.4 10 ^3/uL Monocytes # (Auto) 1.1 0-1.3 10 ^3/uL Eosinophils # (Auto) 0.2 0-0.8 10 ^3/uL Basophils # (Auto) 0 0-0.2 10 ^3/uL Nucleated Red Blood Cells 0.0 % Sodium Level 140 136-145 mmol/L Potassium Level 4.1 3.5-5.1 mmol/L Chloride Level 103 98-107 mmol/L Carbon Dioxide Level 29 20-31 mmol/L Anion Gap 8 5-15 Blood Urea Nitrogen 5 L 9-23 mg/dL Creatinine 1.09 0.700-1.30 mg/dL Glomerular Filtration Rate Calc 83 >90 mL/min BUN/Creatinine Ratio 4.6 L 10.0-20.0 Serum Glucose 82 74-106 mg/dL Calcium Level 8.8 8.7-10.4 mg/dL Total Bilirubin 0.7 0.2-1.0 mg/dL Aspartate Amino Transferase (AST) 28 13-40 U/L Alanine Aminotransferase (ALT) 43 H 7-40 U/L Alkaline Phosphatase 55 46-116 U/L Total Protein 6.7 5.7-8.2 g/dL Albumin 4.2 3.2-4.8 g/dL Hepatitis B Surface Antigen Negative Negative Hepatitis C Antibody Positive *A Negative Urine Color Light-yellow Yellow Urine Clarity Clear Clear Urine pH 6.0 5.0-9.0 Urine Specific [place] > 1.050 H 1.001-1.035 Urine Protein Negative Negative Urine Ketones Negative Negative Urine Blood Negative Negative /uL Urine Nitrite Negative Negative Urine Bilirubin Negative Negative Urine Urobilinogen Normal Negative mg/dL Urine Leukocyte Esterase Negative Negative /uL Urine RBC 1 0 - 3 /hpf Urine Microscopic WBC 1 0-3 /HPF Urine Squamous Epithelial Cells None seen <5 /hpf Urine Bacteria None seen None Seen /hpf Urine Glucose Normal Normal mg/dL Urine Opiates Screen Neg NEGATIVE Urine Fentanyl Screen Neg NEGATIVE Urine Barbiturates Screen Neg NEGATIVE Urine Phencyclidine Screen Neg NEGATIVE Urine Amphetamines Screen Pos NEGATIVE Urine Benzodiazepines Screen Neg NEGATIVE Urine Cocaine Screen Neg NEGATIVE Urine Cannabinoids Screen Pos NEGATIVE Lactic Acid Level 2.0 0.4-2.0 mmol/L Test 09/22/24 18:28 09/22/24 17:52 Range/Units Troponin I High Sensitivity < 3 L </=54 ng/L Lipase 53 12-53 U/L Assessment [id number] R/O AC CHOLECYSTITIS CONSIDER EMERGENT /ELECTIVE GB SURGERY BASED ON ONGOING EVAL Plan discussed with: Patient ONEIL HICKS MD Sep 24, 2024 18:27
--- NOTE | 2024-09-24 19:02 | DVHINCON2 ---
DATE OF CONSULTATION: 09/24/2024 HISTORY OF PRESENT ILLNESS: This patient is 49 years old coming in with right upper quadrant pain and the pain has resolved right now. No nausea or vomiting. No constipation or diarrhea. No hematemesis or melena. No bleeding per rectum. PAST MEDICAL HISTORY: No diabetes or hypertension. PAST SURGICAL HISTORY: No significant abdominal surgeries. He has had a right forearm surgery, details are not clear and left shoulder surgery. PHYSICAL EXAMINATION: VITAL SIGNS: Afebrile, stable signs. HEENT: With no evidence of pallor, cyanosis or jaundice. NECK: Supple and nontender, with no thyromegaly or lymphadenopathy. CHEST AND LUNGS: Clear. HEART: Within normal limits. ABDOMEN: Soft and minimally tender in the right upper quadrant. No rebound. EXTREMITIES: Examination is unremarkable. NEUROLOGIC: Intact. CLINICAL IMPRESSION: Rule out acute cholecystitis. PLAN: The plan would be to consider laparoscopic, possible open cholecystectomy. Benefits were discussed and consent obtained. MD FELISA Ji/ANKUSH TID: [id number] RECEIPT: [id number] cc: Roberto Trevino
--- NOTE | 2024-09-25 11:20 | DVHDS2 ---
Discharge Summary Date of Admission Sep 23, 2024 at 04:22 Date of Discharge: Sep 24, 2024 Labs/Diagnostic Data: Laboratory Results Test 09/24/24 07:04 09/23/24 07:18 09/22/24 21:56 09/22/24 19:45 White Blood Count 9.0 10^3/uL (4.4-10.8) Red Blood Count 5.10 10^6/uL (4.5-5.90) Hemoglobin 16.9 g/dL (13.5-17.5) Hematocrit 47.2 % (41.0-53.0) Mean Corpuscular Volume 92.7 fL (80.0-100.0) Mean Corpuscular Hemoglobin 33.2 pg (28.0-32.0) Mean Corpuscular Hemoglobin Concent 35.8 g/dL (32.0-36.0) Red Cell Distribution Width 12.7 % (11.8-14.3) Platelet Count 227 10^3/uL (140-450) Mean Platelet Volume 8.1 fL (6.9-10.8) Neutrophils (%) (Auto) 55.2 % (37.0-80.0) Lymphocytes (%) (Auto) 30.0 % (10.0-50.0) Monocytes (%) (Auto) 12.7 % (0.0-12.0) Eosinophils (%) (Auto) 1.7 % (0.0-7.0) Basophils (%) (Auto) 0.4 % (0.0-2.0) Neutrophils # (Auto) 4.9 10 ^3/uL (1.6-8.6) Lymphocytes # (Auto) 2.7 10 ^3/uL (0.4-5.4) Monocytes # (Auto) 1.1 10 ^3/uL (0-1.3) Eosinophils # (Auto) 0.2 10 ^3/uL (0-0.8) Basophils # (Auto) 0 10 ^3/uL (0-0.2) Nucleated Red Blood Cells 0.0 % Sodium Level 140 mmol/L (136-145) Potassium Level 4.1 mmol/L (3.5-5.1) Chloride Level 103 mmol/L (98-107) Carbon Dioxide Level 29 mmol/L (20-31) Anion Gap 8 (5-15) Blood Urea Nitrogen 5 mg/dL (9-23) Creatinine 1.09 mg/dL (0.700-1.30) Glomerular Filtration Rate Calc 83 mL/min (>90) BUN/Creatinine Ratio 4.6 (10.0-20.0) Serum Glucose 82 mg/dL (74-106) Calcium Level 8.8 mg/dL (8.7-10.4) Total Bilirubin 0.7 mg/dL (0.2-1.0) Aspartate Amino Transferase (AST) 28 U/L (13-40) Alanine Aminotransferase (ALT) 43 U/L (7-40) Alkaline Phosphatase 55 U/L (46-116) Total Protein 6.7 g/dL (5.7-8.2) Albumin 4.2 g/dL (3.2-4.8) Hepatitis B Surface Antigen Negative (Negative) Hepatitis C Antibody Positive (Negative) Urine Color Light-yellow (Yellow) Urine Clarity Clear (Clear) Urine pH 6.0 (5.0-9.0) Urine Specific [place] > 1.050 (1.001-1.035) Urine Protein Negative (Negative) Urine Ketones Negative (Negative) Urine Blood Negative /uL (Negative) Urine Nitrite Negative (Negative) Urine Bilirubin Negative (Negative) Urine Urobilinogen Normal mg/dL (Negative) Urine Leukocyte Esterase Negative /uL (Negative) Urine RBC 1 /hpf (0 - 3) Urine Microscopic WBC 1 /HPF (0-3) Urine Squamous Epithelial Cells None seen /hpf (<5) Urine Bacteria None seen /hpf (None Seen) Urine Glucose Normal mg/dL (Normal) Urine Opiates Screen Neg (NEGATIVE) Urine Fentanyl Screen Neg (NEGATIVE) Urine Barbiturates Screen Neg (NEGATIVE) Urine Phencyclidine Screen Neg (NEGATIVE) Urine Amphetamines Screen Pos (NEGATIVE) Urine Benzodiazepines Screen Neg (NEGATIVE) Urine Cocaine Screen Neg (NEGATIVE) Urine Cannabinoids Screen Pos (NEGATIVE) Lactic Acid Level 2.0 mmol/L (0.4-2.0) Test 09/22/24 18:28 09/22/24 17:52 Troponin I High Sensitivity < 3 ng/L (</=54) Lipase 53 U/L (12-53) Other Laboratory Tests 09/24/24 07:04 Brief Hx & Hospital Course: The patient is a 49-year-old male who denies past medical history presented to [facility] ED with complaint of abdominal pain. Patient reports symptoms progressively get worse with epigastric abdominal pain, described as stabbing, nonradiating, rating 9/10 numeric scale, getting worse that prompted this visit. Patient was seen and evaluated in the ED, laboratory data shows WBC 10.1, platelets 257, sodium 141, potassium 3.7, BUN 9, creatinine 1.05, glucose 100, calcium 9.0, lipase 53, lactic acid 2.5 trending down to 2.0, troponin < 3, AST 25, ALT 46, urine toxicology positive for marijuana and amphetamine, blood pressure 124/78, heart rate 80, temperature 98.2 F, O2 saturation 97% on room air. Single organ ultrasound revealing few small stones and sludge within the gallbladder; no gallbladder wall thickening pericholecystic fluid, no sonographic John's sign. Patient was given Dilaudid 1 mg IV x1, IV Zofran, please see medication orders section in the computer. On my assessment, patient denied chest pain, no headache, no dizziness, no shortness of breaths, no diarrhea, no nausea, no vomiting, no fever, no chills. Patient was admitted for further evaluation and medical management. He is admitted and evaluated by general surgery. [facility] his abdominal pain could be possibly secondary to gallbladder problem versus gastritis. Patient is recommended to undergo further evaluations and management per General surgery. Patient had a HIDA scan came back abnormal. However patient tolerating his diet and pain is improved. He did not want to stay in the hospital any longer. Apparently he decided to leave [facility]. I was notified by the nurse after leaving [facility]. Operations or Procedures ORDER NUMBER(s): [id number], ACCESSION NUMBER(s): [id number] CLINICAL INFORMATION: Abdominal pain. TECHNIQUE: 6.5 mCi of Choletec were administered intravenously. Images of the upper abdomen were obtained at 2 minute intervals up to a total time of 60 minutes. 4 hour delayed images were also obtained. COMPARISON: CT dated 09/22/2024 and ultrasound dated 09/22/2024. FINDINGS: The gallbladder is not visualized on initial images obtained up to 60 minutes or on the 4 hour delayed images. There is prompt excretion of activity from the biliary ductal system into the small bowel. IMPRESSION: Gallbladder not visualized, suspicious for acute cholecystitis in the appropriate clinical setting. Correlate with clinical findings. Condition at Discharge: Guarded Final Diagnosis/Problems List Cholecystitis, unspecified (2) Intractable abdominal pain (3) Polysubstance abuse Discharge Disposition: AMA Discharge Statement: "Patient was advised to return to the ER or call 911 if any headaches, dizziness, shortness of breath, chest pain, abdominal pain, bleeding, fevers, or worsening of medical condition. Patient was counseled about treatment plan, medications, possible side effects, patientverbalized understanding. All questions were answered to the best of my ability. This discharge took greater then 30 minutes in planning, reviewing documentation, counseling the patient, and discussing with other team members." ASSESSMENT ASSESSMENT Assessment Date of Service: Sep 24, 2024 Billing Provider: ROBERTO SAUCEDO MD Common Visit Codes: [id number] DISCH DAY <30MIN ROBERTO SAUCEDO MD Sep 25, 2024 11:20
== END 2024-09-24 21:20 | disposition left against medical advice (07) | DRG 241 ==
LOC: EDBD 17:33 → ER 17:33 → OVERFLOW 09-23 04:22 → WEST WING 09-23 13:55
PROVIDERS: ADMIT Internal Medicine; ATTEND Internal Medicine
DX: K29.70 Gastritis, unspecified, without bleeding (principal); K80.12 Calculus of gallbladder with acute and chronic cholecystitis without obstruction; Z53.29 Procedure and treatment not carried out because of patient's decision for other reasons; K21.9 Gastro-esophageal reflux disease without esophagitis; F19.90 Other psychoactive substance use, unspecified, uncomplicated; Z79.899 Other long term (current) drug therapy
CPT/HCPCS: 36415; 74177; 76705; 78226; 80053; 80307; 81001; 83605; 83690; 84484; 85025; 86803; 87340; 93005; 96361; 96374; 96375; G0378; J2405; J2470